=== PATIENT | male | born 1950 ===

== ENCOUNTER 2016-02-25 13:37 | Inpatient (IN) | payer SELFPAY ==
[2016-02-25] VITALS (8 sets, daily range): BP systolic 157–192; BP diastolic 84–121; PULSE 52–83; TEMP 36.7–36.8; O2SAT 95–98; Ht 170.2 cm; Wt 69.0 kg
[~2016-02-25] VITALS: Ht 170.2 cm; Wt 69.0 kg
[2016-02-25] MEDS ORDERED: SODIUM CHLORIDE 0.9% 1000ML 1,000 ML IV SCH ×2 (14:03→20:15)
--- NOTE | 2016-02-25 14:03 | EMERGENCY ROOM VISIT NOTE ---
History Report prepared by Gregibe: Jenifer Adams Under the Supervision of: Dr. Sheila Zepeda M.D. First contact with patient: 13:46 Chief Complaint: STROKE SYMPTOMS Stated Complaint: TROUBLE SPEAKING/WALKING/STANDING History of Present Illness The patient is a 65 year old male who presents to the Emergency Room with complaints of stroke-like symptoms that began about 45 minutes ago. Per patient' s family, who is translating as the patient does not speak any [place]o, the patient developed right sided numbness initially 45 minutes ago. He tried to stand up but fell a few times. His family also noticed that he was having a hard time speaking. His symptoms seemed to resolve after 30 minutes. Upon arrival to the emergency room, he had another episode of numbness that lasted about 10 minutes. Currently he feels better but not completely normal on his right side. His family states that his speech does seem clear. He does not have a known history of stroke, cancer, or heart disease, although he does not follow up with a primary care physician. The patient is a smoker of about 4-5 cigarettes a day for over 20 years. 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 A total of 10 systems reviewed and were otherwise negative. Past Medical & Surgical Medical Problems: (1) Stroke (2) Tobacco abuse Surgical Problems: (1) No pertinent past surgical history Family History No pertinent family history stated. Social History Smoking Status: Current Every Day Smoker Marital Status: Occupation Status: retired Current/Historical Medications No Active Prescriptions or Reported Meds Allergies Coded Allergies: No Known Allergies (Unverified , 02/25/16) Physical Exam Vital Signs Date Time Temp Pulse Resp B/P Pulse Ox O2 Delivery O2 Flow Rate FiO2 02/25/16 16:30 59 16 180/90 97 Room Air 02/25/16 16:15 55 20 176/87 97 Room Air 02/25/16 16:00 60 19 165/95 98 Room Air 02/25/16 15:45 57 17 163/84 97 Room Air 02/25/16 15:30 56 18 155/87 96 Room Air 02/25/16 15:15 57 17 179/68 96 Room Air 02/25/16 14:31 94 Room Air 02/25/16 13:59 64 02/25/16 13:41 36.9 76 18 188/87 97 Room Air Physical Exam Vital signs reviewed. General: Well-appearing 65 year old male, in no significant distress. HEENT: No scleral icterus, PERRLA, neck supple. Atraumatic. Cardiovascular: Regular rate and rhythm, no extra sounds. Pulmonary: Clear to auscultation bilaterally, normal work of breathing. Abdomen: Soft, nontender, nondistended, positive bowel sounds. Musculoskeletal: Atraumatic, no peripheral edema. Neurologic: Patient awake alert and oriented x 3, full strength in all 4 extremities. Cranial nerves 2 through 12 grossly intact. Limited due to language Skin: Warm, dry, no rash Medical Decision & Procedures ER Provider Diagnostic Interpretation: X-ray results as stated below per my interpretation and radiologist interpretation. Other radiology results as stated below per my review and radiologist interpretation: CT SCAN OF THE BRAIN WITHOUT IV CONTRAST; CT ANGIOGRAM OF THE BRAIN; CT ANGIOGRAM OF THE NECK CLINICAL HISTORY: Strokelike symptoms. Difficult walking. COMPARISON STUDY: No priors. TECHNIQUE: Unenhanced axial CT scan of the brain is performed. Subsequently, following the IV administration of 120 of Optiray 320, CT angiogram of the head and neck was performed from the aortic arch to the vertex. Images are reviewed in the axial, sagittal, and coronal planes. 3-D MIPS images are created and assessed. IV contrast was administered without complication. All measurements were calculated based on NASCET criteria. CT DOSE: 1345.08 mGy.cm FINDINGS: Brain parenchyma: The brain parenchyma is normal in appearance. There is no hemorrhage, mass effect, or evidence of acute territorial ischemia by CT criteria. There is no evidence of enhancing mass lesion on the angiogram phase images. The ventricles, sulci, and cisterns are normal in configuration. [place]-white matter differentiation is preserved. No extra-axial fluid collection is identified. Thoracic aorta: There is atherosclerotic calcification of the imaged thoracic aorta. Visualized portions of the thoracic aorta are normal in caliber. The aortic arch demonstrates standard 3-vessel anatomy. Right carotid arterial system: The right common carotid artery is widely patent, as are the right internal and external carotid arteries. Mild atherosclerotic plaque is seen in the right carotid bulb. Left carotid arterial system: The left common carotid artery is widely patent, as are the left internal and terminal carotid arteries. There is approximately 25% narrowing in the left proximal internal carotid artery secondary to soft plaque. Vertebral arteries: The vertebral arteries are widely patent. The left vertebral artery is dominant. No dissection is seen. Subclavian arteries: Widely patent bilaterally. Intracranial vasculature: A small left posterior indicating artery is identified. There is approximately 50% focal stenosis in the left carotid siphon, best seen on axial image #[address] angiogram of the brain. The carotid arteries are otherwise widely patent at the skull base. The anterior and middle cerebral arteries are widely patent. The vertebrobasilar system and posterior cerebral arteries are widely patent. The left vertebral artery is dominant. No aneurysm is seen. No focal vessel cutoff is appreciated. Jugular veins: Widely patent bilaterally. Dural sinuses: Clear. Lung apices: Emphysema is seen at the lung apices. Secretions are present within the right mainstem bronchus. No airspace consolidation is seen in the upper lobes. Soft tissues: The visualized pharyngeal soft tissues are normal in appearance noting angiographic phase technique. The oropharyngeal airway appears widely patent. The salivary and thyroid glands are normal in appearance. No cervical lymphadenopathy is seen. Calcified tonsilliths are incidentally noted. Skeletal structures: No destructive calvarial lesion is seen. The cervical spine appears intact noting mild spondylosis. Numerous dental caries are identified. A periapical lucency is seen around the right mandibular central incisor. Sinuses and mastoids: There is mild mucosal thickening within the maxillary antra and the ethmoid sinuses. The remaining paranasal sinuses are clear. The mastoid air cells are well pneumatized. IMPRESSION: 1. There is no hemorrhage, mass effect, or evidence of acute territorial ischemia by CT criteria. 2. 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 The CT angiogram of the brain is otherwise unremarkable. No aneurysm is seen. 3. Unremarkable CT angiogram of the neck. 4. Emphysema. 5. Numerous dental caries are identified. Follow-up with dentistry is recommended. 6. Additional findings as above. Electronically signed by: Brock Putnam M.D. 02/25/2016 2:41 PM Dictated Date/Time: 02/25/2016 2:21 PM CHEST ONE VIEW PORTABLE HISTORY: Stroke symptoms. COMPARISON: None. FINDINGS: The lungs are clear. No pleural effusions. No pneumothorax. The heart is top normal in size. No evidence for pulmonary edema. IMPRESSION: No acute process. Electronically signed by: Cameron Wood M.D. 02/25/2016 2:40 PM Dictated Date/Time: 02/25/2016 2:38 PM Laboratory Results 02/25/16 13:50 Red Blood Count 4.96, Mean Corpuscular Volume 90.7, Mean Corpuscular Hemoglobin 30.8, Mean Corpuscular Hemoglobin Concent 34.0, Mean Platelet Volume 10.3, Neutrophils (%) (Auto) 44.0, Lymphocytes (%) (Auto) 43.5, Monocytes (%) (Auto) 7.1, Eosinophils (%) (Auto) 4.9, Basophils (%) (Auto) 0.4, Neutrophils # (Auto) 4.11, Lymphocytes # (Auto) 4.07, Monocytes # (Auto) 0.66, Eosinophils # (Auto) 0.46, Basophils # (Auto) 0.04 02/25/16 13:50 Test 02/25/16 13:50 White Blood Count 9.35 K/uL (4.8-10.8) Red Blood Count 4.96 M/uL (4.7-6.1) Hemoglobin 15.3 g/dL (14.0-18.0) Hematocrit 45.0 % (42-52) Mean Corpuscular Volume 90.7 fL (80-100) Mean Corpuscular Hemoglobin 30.8 pg (25-34) Mean Corpuscular Hemoglobin Concent 34.0 g/dl (32-36) Platelet Count 198 K/uL (130-400) Mean Platelet Volume 10.3 fL (7.4-10.4) Neutrophils (%) (Auto) 44.0 % Lymphocytes (%) (Auto) 43.5 % Monocytes (%) (Auto) 7.1 % Eosinophils (%) (Auto) 4.9 % Basophils (%) (Auto) 0.4 % Neutrophils # (Auto) 4.11 K/uL (1.4-6.5) Lymphocytes # (Auto) 4.07 K/uL (1.2-3.4) Monocytes # (Auto) 0.66 K/uL (0.11-0.59) Eosinophils # (Auto) 0.46 K/uL (0-0.5) Basophils # (Auto) 0.04 K/uL (0-0.2) RDW Standard Deviation 45.3 fL (36.4-46.3) RDW Coefficient of Variation 13.8 % (11.5-14.5) Immature Granulocyte % (Auto) 0.1 % Immature Granulocyte # (Auto) 0.01 K/uL (0.00-0.02) Prothrombin Time 10.5 SECONDS (9.0-12.0) Prothromb Time International Ratio 1.0 (0.9-1.1) Activated Partial Thromboplast Time 27.8 SECONDS (21.0-31.0) Partial Thromboplastin Ratio 1.1 Anion Gap 10.0 mmol/L (3-11) Est Creatinine Clear Calc Drug Dose 62.6 ml/min Estimated GFR () 81.2 Estimated GFR (Non- 70.1 BUN/Creatinine Ratio 17.0 (10-20) Calcium Level 9.2 mg/dl (8.5-10.1) Total Bilirubin 0.4 mg/dl (0.2-1) Direct Bilirubin < 0.1 mg/dl (0-0.2) Aspartate Amino Transf (AST/SGOT) 17 U/L (15-37) Alanine Aminotransferase (ALT/SGPT) 19 U/L (12-78) Alkaline Phosphatase 65 U/L (45-117) Total Creatine Kinase 101 U/L (39-308) Creatine Kinase MB 1.4 ng/ml (0.5-3.6) Creatine Kinase MB Ratio 1.4 (0-3.0) Troponin I < 0.015 ng/ml (0-0.045) Total Protein 7.7 gm/dl (6.4-8.2) Albumin 3.7 gm/dl (3.4-5.0) Laboratory results per my review. Medications Administered Medications (Trade) Dose Ordered Sig/Oliverio Route Start Time Stop Time Status Last Admin Dose Admin Sodium Chloride (Nss 1000ml) 1,000 ml @ 50 mls/hr Q20H IV 02/25/16 14:03 02/25/16 17:48 DC 02/25/16 14:45 50 MLS/HR ECG Indication: other (numbness) Rate (beats per minute): 72 Rhythm: normal sinus Findings: no ectopy, other (T wave abnormality anterolaterally) ED Course 1346: The patient was evaluated in room A12. A complete history and physical examination was performed. 1403: I reassessed the patient. At this time he had slurred speech, a right sided facial droop, tongue deviation to the right, and 4/5 right upper extremity weakness. Ordered NSS 1000 ml @ 50 mls/hr IV. 1424: I discussed the case with Dr. Fabiana Victoria Neurology. 1451: I reassessed the patient and discussed treatment options with the patient' s family. 1459: Ordered Alteplase Recombinant 6.2/Syringe 6.2 ml @ 6.2 mls/min IV, Alteplase Recombinant 55.8 mg/Empty Bag 55.8 ml @ 55.8 mls/hr IV. 1500: TPA will be administered. 1600: I reassessed the patient. He still had some right facial droop but his tongue deviation resolved and he seemed a little bit clearer. I discussed the treatment plan with the patient's family. 1605: I discussed the case with BEULAH Dupree [facility]. The patient will be evaluated for further management. Medical Decision Differential diagnosis: Etiologies such as metabolic, infection, hypo/hyperglycemia, electrolyte abnormalities, cardiac sources, intracerebral event, toxicologic, neurologic, as well as others were entertained. This patient was evaluated and appeared to be in no distress on my initial exam. The patient had no focal neurologic deficit initially. 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 Approximately 78 minutes after my initial evaluation, the patient had recurrent symptoms with noticeable right-sided facial droop, tongue deviation to the right, right upper and lower extremity weakness. He does not speak [place]o but according to family members his speech was slurred. The patient remained cognizant and able to state the year during this episode. A stroke alert was called, the patient was taken CT scan for CT/CTA which is read as above. Dr. Fitzgerald of stroke neurology did evaluate the patient. TPA was recommended and the patient had no significant contraindication. The risks and benefits were discussed with the patient and his family. They were able to translate for the patient at the bedside. TPA was administered. The case was discussed with the hospitalist service as well as the single resource boss, Dr. Weiner. Patient will be admitted for further management. Consults Time Called: 1420 Consulting Physician: Dr. Fabiana Victoria Neurology Returned Call: [phone] I discussed the case with her. Additional Consults: Time Called: 1600 Consulted Physician: [facility] Returned Call: [phone] Additional Comments: I discussed the case with her. The patient will be evaluated for further management. Impression Primary Impression: Stroke Critical Care I have personally spent greater than 45 minutes of critical care time in the direct management of this patient. This includes bedside care, interpretation of diagnostic studies, and testing, discussion with consultants, patient, and family members, and other required patient management activities. This 45 minutes is in excess of all separately billable procedures. Scribe Attestation The scribe's documentation has been prepared under my direction and personally reviewed by me in its entirety. I confirm that the note above accurately reflects all work, treatment, procedures, and medical decision making performed by me. Departure Information Dispostion Being Evaluated By Hospitalist Prescriptions No Active Prescriptions or Reported Meds Referrals No Doctor, Assigned (PCP) Patient Instructions My [facility]
[2016-02-25 14:10] LABS: BASO % 0.4 %; BASO ABS # 0.04 K/uL (0-0.2); COMPLETE YES; EOS % 4.9 %; IG% 0.1 %; LYMPH % 43.5 %; LYMPH ABS # 4.07 K/uL (1.2-3.4); MEAN CELL VOLUME 90.7 fL (80-100); MEAN CORPUSCULAR HEMOGLOBIN 30.8 pg (25-34); MEAN PLATELET VOLUME 10.3 fL (7.4-10.4); MONO % 7.1 %; PLATELET COUNT 198 K/uL (130-400); RED BLOOD COUNT 4.96 M/uL (4.7-6.1); WHITE BLOOD COUNT 9.35 K/uL (4.8-10.8)
[2016-02-25] MEDS ORDERED: OPTIRAY 320 IV PRN (14:15)
[2016-02-25 14:19] LABS: PARTIAL THROMBOPLASTIN RATIO 1.1; PROTHROMBIN TIME (PATIENT) 10.5 SECONDS (9.0-12.0)
[2016-02-25 14:21] LABS: BLOOD UREA NITROGEN 19 mg/dl (7-18); CALCIUM 9.2 mg/dl (8.5-10.1); CARBON DIOXIDE 23 mmol/L (21-32); CHLORIDE 109 mmol/L (98-107); GLUCOSE 157 mg/dl (70-99); SODIUM 142 mmol/L (136-145)
[2016-02-25 14:26] LABS: CKMB/CK RATIO 1.4 (0-3.0)
--- NOTE | 2016-02-25 14:41 | DIAGNOSTIC IMAGING REPORT ---
CHEST ONE VIEW PORTABLE HISTORY: Stroke symptoms. COMPARISON: None. FINDINGS: The lungs are clear. No pleural effusions. No pneumothorax. The heart is top normal in size. No evidence for pulmonary edema. IMPRESSION: No acute process. Electronically signed by: Cameron Wood M.D. 02/25/2016 2:40 PM Dictated Date/Time: 02/25/2016 2:38 PM
--- NOTE | 2016-02-25 14:43 | DIAGNOSTIC IMAGING REPORT ---
CT SCAN OF THE BRAIN WITHOUT IV CONTRAST; CT ANGIOGRAM OF THE BRAIN; CT ANGIOGRAM OF THE NECK CLINICAL HISTORY: Strokelike symptoms. Difficult walking. COMPARISON STUDY: No priors. TECHNIQUE: Unenhanced axial CT scan of the brain is performed. Subsequently, following the IV administration of 120 of Optiray 320, CT angiogram of the head and neck was performed from the aortic arch to the vertex. Images are reviewed in the axial, sagittal, and coronal planes. 3-D MIPS images are created and assessed. IV contrast was administered without complication. All measurements were calculated based on NASCET criteria. CT DOSE: 1345.08 mGy.cm FINDINGS: Brain parenchyma: The brain parenchyma is normal in appearance. There is no hemorrhage, mass effect, or evidence of acute territorial ischemia by CT criteria. There is no evidence of enhancing mass lesion on the angiogram phase images. The ventricles, sulci, and cisterns are normal in configuration. [place]-white matter differentiation is preserved. No extra-axial fluid collection is identified. Thoracic aorta: There is atherosclerotic calcification of the imaged thoracic aorta. Visualized portions of the thoracic aorta are normal in caliber. The aortic arch demonstrates standard 3-vessel anatomy. Right carotid arterial system: The right common carotid artery is widely patent, as are the right internal and external carotid arteries. Mild atherosclerotic plaque is seen in the right carotid bulb. Left carotid arterial system: The left common carotid artery is widely patent, as are the left internal and terminal carotid arteries. There is approximately 25% narrowing in the left proximal internal carotid artery secondary to soft plaque. Vertebral arteries: The vertebral arteries are widely patent. The left vertebral artery is dominant. No dissection is seen. Subclavian arteries: Widely patent bilaterally. Intracranial vasculature: A small left posterior indicating artery is identified. There is approximately 50% focal stenosis in the left carotid siphon, best seen on axial image #[address] angiogram of the brain. The carotid arteries are otherwise widely patent at the skull base. The anterior and middle cerebral arteries are widely patent. The vertebrobasilar system and posterior cerebral arteries are widely patent. The left vertebral artery is dominant. No aneurysm is seen. No focal vessel cutoff is appreciated. Jugular veins: Widely patent bilaterally. Dural sinuses: Clear. Lung apices: Emphysema is seen at the lung apices. Secretions are present within the right mainstem bronchus. No airspace consolidation is seen in the upper lobes. Soft tissues: The visualized pharyngeal soft tissues are normal in appearance noting angiographic phase technique. The oropharyngeal airway appears widely patent. The salivary and thyroid glands are normal in appearance. No cervical lymphadenopathy is seen. Calcified tonsilliths are incidentally noted. Skeletal structures: No destructive calvarial lesion is seen. The cervical spine appears intact noting mild spondylosis. Numerous dental caries are identified. A periapical lucency is seen around the right mandibular central incisor. Sinuses and mastoids: There is mild mucosal thickening within the maxillary antra and the ethmoid sinuses. The remaining paranasal sinuses are clear. The mastoid air cells are well pneumatized. IMPRESSION: 1. There is no hemorrhage, mass effect, or evidence of acute territorial ischemia by CT criteria. 2. 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 The CT angiogram of the brain is otherwise unremarkable. No aneurysm is seen. 3. Unremarkable CT angiogram of the neck. 4. Emphysema. 5. Numerous dental caries are identified. Follow-up with dentistry is recommended. 6. Additional findings as above. Electronically signed by: Brock Putnam M.D. 02/25/2016 2:41 PM Dictated Date/Time: 02/25/2016 2:21 PM
[2016-02-25] MEDS ORDERED: SET 2260-0500 IV ONE (15:00)
[2016-02-25] MEDS ORDERED: PHARMACIST DISCHARGE MED REC CONSULT PRN (16:45)
[2016-02-25 16:59] LABS: URINE APPEARANCE CLEAR (CLEAR); URINE BILIRUBIN NEG (NEG); URINE COLOR YELLOW; URINE EPITHELIAL CELL AUTO 0-5 /lpf (0-5); URINE NITRITE NEG (NEG); URINE SPECIFIC GRAVITY 1.036 (1.000-1.030); UROBILINOGEN NEG (NEG); ZZUR CULT IF INDIC CLEAN CATCH NO
[2016-02-25 17:00] LABS: MANUAL MICROSCOPIC REQUIRED? NO; REVIEW REQ? NO
[2016-02-25] MEDS ORDERED: ACETAMINOPHEN 325 MG TAB PO PRN (17:00)
[2016-02-25] MEDS ORDERED: ONDANSETRON INJ 2 MG/ML 2 ML VIAL IV PRN (17:00)
--- NOTE | 2016-02-25 17:11 | History and Physical ---
History & Physical Date & Time of Service: Feb 25, 2016 at 16:48 Chief Complaint: Trouble Speaking/Walking/Standing Primary Care Physician: No Doctor, Assigned History of Present Illness Source: patient, family, hospital records Patient seen and examined. 65 year old male with PMHx of tobacco abuse ho does not follow with a doctor on a regular basis and speaks minimal Cymraes presents to the ED complaining of right sided weakness prior to arrival. History taken primarily by family as they declined language line. Family reports that the patient had several falls this morning. They went over to see him and around 12: 30 they noticed right sided upper and lower extremity weakness, slurred speech and right sided facial droop. These symptoms lasted for about 30minutes and then resolved totally. They brought the patient to the ED via private vehicle and on the way these symptoms returned and lasted for a few minutes and then went away. On arrival at the ED the patient had no focal deficits. Shortly after arrival, patient developed right sided facial droop, numbness/tingling and weakness of the right upper and lower extremity and slurred speech. A stroke alert was called. CT head was negative for acute ischemic changes but [facility] neurology recommended TPA. TPA was given and finished at 1603. Patient currently feels back at baseline. Family denies that these symptoms have ever happened before. The patient denies fevers, chills, head trauma, URI symptoms, chest pain, SOB, palpitation, nausea, vomiting, diarrhea, dysuria, calf pain and edema. He reports a family history of a stroke in his father. He denies aspirin use. In the ED BP was elevated in the 170s, otherwise VS were stable, CBC, PRP were unremarkable. Patient will be admitted to the ICU for close observation following TPA administration. Past Medical/Surgical History Medical Problems: (1) Tobacco abuse Status: Chronic Surgical Problems: (1) No pertinent past surgical history Status: Chronic Family History Stroke FATHER Social History Smoking Status: Current Every Day Smoker Alcohol Use: none Drug Use: none Marital Status: Occupational Status: retired Allergies Coded Allergies: No Known Allergies (Unverified , 02/25/16) Home Medications No Active Prescriptions or Reported Meds Review of Systems See above for pertinent positives & negatives. A total of 10 systems reviewed and were otherwise negative. Physical Exam Vital Signs Date Time Temp Pulse Resp B/P Pulse Ox O2 Delivery O2 Flow Rate FiO2 02/25/16 16:45 54 18 178/83 96 Room Air 02/25/16 16:30 59 16 180/90 97 Room Air 02/25/16 16:15 55 20 176/87 97 Room Air 02/25/16 16:00 60 19 165/95 98 Room Air 02/25/16 15:45 57 17 163/84 97 Room Air 02/25/16 15:30 56 18 155/87 96 Room Air 02/25/16 15:15 57 17 179/68 96 Room Air 02/25/16 14:31 94 Room Air 02/25/16 13:59 64 02/25/16 13:41 36.9 76 18 188/87 97 Room Air General Appearance: + pertinent finding (Pleasant WD/WN 65 year old male lying in bed in NAD with family at bedside ) Head: normocephalic, atraumatic Eyes: PERRL, sclerae normal ENT: hearing grossly normal, + pertinent finding (poor dentition ) Neck: supple, no JVD, trachea midline Respiratory/Chest: chest non-tender, normal breath sounds, no respiratory distress, no accessory muscle use, + crackles (trace, scattered ) Cardiovascular: regular rate, rhythm, no edema, no gallop, no JVD, no murmur, normal peripheral pulses Abdomen/GI: normal bowel sounds, non tender, soft Back: normal inspection, no muscle spasm Extremities/Musculoskelatal: no calf tenderness, normal capillary refill, no pedal edema Neurologic/Psych: alert, oriented x 3, + pertinent finding (tinter photograph intact, no facial droop, tongue midline, strength +5/5 in all extremities equal bilaterally , sensation intact) Skin: normal color, warm/dry, no rash Lymphatic: no adenopathy Diagnostics Laboratory Results Results Past 24 Hours Test 02/25/16 13:50 02/25/16 14:04 02/25/16 16:33 Range/Units White Blood Count 9.35 4.8-10.8 K/uL Red Blood Count 4.96 4.7-6.1 M/uL Hemoglobin 15.3 14.0-18.0 g/dL Hematocrit 45.0 42-52 % Mean Corpuscular Volume 90.7 80-100 fL Mean Corpuscular Hemoglobin 30.8 25-34 pg Mean Corpuscular Hemoglobin Concent 34.0 32-36 g/dl Platelet Count 198 130-400 K/uL Mean Platelet Volume 10.3 7.4-10.4 fL Neutrophils (%) (Auto) 44.0 % Lymphocytes (%) (Auto) 43.5 % Monocytes (%) (Auto) 7.1 % Eosinophils (%) (Auto) 4.9 % Basophils (%) (Auto) 0.4 % Neutrophils # (Auto) 4.11 1.4-6.5 K/uL Lymphocytes # (Auto) 4.07 1.2-3.4 K/uL Monocytes # (Auto) 0.66 0.11-0.59 K/uL Eosinophils # (Auto) 0.46 0-0.5 K/uL Basophils # (Auto) 0.04 0-0.2 K/uL RDW Standard Deviation 45.3 36.4-46.3 fL RDW Coefficient of Variation 13.8 11.5-14.5 % Immature Granulocyte % (Auto) 0.1 % Immature Granulocyte # (Auto) 0.01 0.00-0.02 K/uL Prothrombin Time 10.5 9.0-12.0 SECONDS Prothromb Time International Ratio 1.0 0.9-1.1 Activated Partial Thromboplast Time 27.8 21.0-31.0 SECONDS Partial Thromboplastin Ratio 1.1 Sodium Level 142 136-145 mmol/L Potassium Level 4.0 3.5-5.1 mmol/L Chloride Level 109 98-107 mmol/L Carbon Dioxide Level 23 21-32 mmol/L Anion Gap 10.0 3-11 mmol/L Blood Urea Nitrogen 19 7-18 mg/dl Creatinine 1.10 0.60-1.40 mg/dl Est Creatinine Clear Calc Drug Dose 62.6 ml/min Estimated GFR () 81.2 Estimated GFR (Non- 70.1 BUN/Creatinine Ratio 17.0 10-20 Random Glucose 157 70-99 mg/dl Calcium Level 9.2 8.5-10.1 mg/dl Total Creatine Kinase 101 39-308 U/L Creatine Kinase MB 1.4 0.5-3.6 ng/ml Creatine Kinase MB Ratio 1.4 0-3.0 Troponin I < 0.015 0-0.045 ng/ml Diagnostic Radiology CXR Per radiologist read: IMPRESSION: No acute process. CT HEAD/ CTA HEAD Per radiologist read: IMPRESSION: 1. There is no hemorrhage, mass effect, or evidence of acute territorial ischemia by CT criteria. 2. 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 The CT angiogram of the brain is otherwise unremarkable. No aneurysm is seen. 3. Unremarkable CT angiogram of the neck. 4. Emphysema. 5. Numerous dental caries are identified. Follow-up with dentistry is recommended. 6. Additional findings as above. EKG NSR 72 BPM, QTc 409 Impression Assessment and Plan 65 year old male presents to the ED with stroke like symptoms prior to arrival. Stroke alert called and patient received TPA, neurologically back at baseline ACUTE CVA S/P TPA -admit to ICU -CT head negative for acute ischemia, CTA head/neck shows 50% stenosis within the left carotid siphon -Stroke alert called, TPA given and finished at 1603 -Repeat CT head 24 hours after TPA -MRI/MRA head -Check A1c, fasting lipid profile -Echo pending to r/o embolic source -monitoring analyst to r/o arrhythmia -monitor in ICU for bleeding -no anticoagulation -Lipitor started for clot stabilization -Neurology consult pending for further input -Child Protective Investigator consult for further input - spoke with Dr. Springer -Neuro checks per TPA protocol -Speech, PT, OT evals -dysphagia screening -allow permissive HTN in setting of CVA -monitor VS closely -CBC, PRP, Mg daily HTN -running in the 170s systolically -allow for permissive HTN in setting of CVA TOBACCO ABUSE - cessation counseling given -nicotine patch ordered DVT PROPHYLAXIS: no anticoagulation - patient received TPA DISPO:In my clinical judgment this beneficiary meets acute admission criteria, established by [facility], that includes being hospitalized through two midnights. Discharge planning eval Patient seen in collaboration with Dr. Westfall Attending Note: Patient is a 65 yr old male with no significant PMH other than Tobacco use disorder presents with history of sudden onset of right sided weakness, facial droop and slurred speech this morning. Family reports he fell at least twice as a result of his weakness but denies any head trauma, LOC, bowel/bladder incontinence, vertigo, change in vision, dizziness or similar symptoms in the past. Symptoms were self limited which lasted for about 30 minutes. While in ED patient had recurrence of his symptoms and CT head showed no acute pathology and TPA was administered while in ED Currently he denies any symptoms and his weakness, speech and facial droop resolved. Physical Exam: Vitals signs as noted above General Appearance:Moderately built and nourished, no apparent distress Head: normocephalic, Atraumatic Eyes: normal inspection, EOMI, PERRLA, Anicteric Neck: supple, no JVD, Trachea midline, No JVD Respiratory/Chest: Decreased breath sounds, CTA, No accessory muscle use Cardiovascular: S1, S2, NSR, No murmur Abdomen/GI:Soft, Non tender, Bowel sounds present, No guarding/rigidity/ organomegaly Extremities/Musculoskelatal:normal inspection, no calf tenderness, cyanosis, clubbing, edema Neurologic/Psych:AAOX3, grossly no focal neurological deficits Skin: normal color, warm Assessment and Plan: Acute CVA S/P tPA Admit in ICU for monitoring S/P tPA CT head: showed no acute pathology Stroke work up including lipid panel, A1C, MRI Brain, Carotid duplex, ECHO Repeat CT head post tPA No aspirin for now, start Lipitor Neuro checks, Neurology consult Child Protective Investigator consulted for management while in ICU Speech and swallow eval PT/OT Close monitoring in ICU S/P tPA Agree with assessment and plan of Kandis Joel PA-C as above VTE Prophylaxis VTE Risk Assessment Done? Y/N: Yes Risk Level: Moderate
--- NOTE | 2016-02-25 18:35 | Critical Care Consultation ---
Critical Care Consultation Date of Consultation: Feb 25, 2016. Attending Physician: Angy Barton DO Reason for Consultation: stroke tpa admin History of Present Illness History was taken from family members because patient does not speak icelandic This is a 65 yo m that is presenting to us after receiving tpa for stroke like symptoms. The patient called her niece at approximately 1230 this afternoon because he has right sided weakness and difficulty speaking. He also had fallen twice. The niece arrived to the house by 1300 and the symptoms resolved. Soon after the symptoms started again and the right sided weakness was visible as well as right sided facial drooping so they decided to come to ED via private vehicle. On arrival he continued to have these symptoms so a stroke alert was called and patient was administered tpa at [address] Jung, neurology. The facial drooping/ tongue deviation resolved after administration and right sided weakness improved but not to BL. According to the niece the speech is appropriate and not slurred. He did not have any other symptoms such as a fever, chest pain, incontinence or myalgias. He has no past medical history or surgical history as he has never seen a doctor or been in a hospital before. He smokes approx 5-6 cig / day for the majority of his life. Past Medical/Surgical History Nil Family History Stroke FATHER Social History Smoking Status: Current Every Day Smoker Smokeless Tobacco Use: No Alcohol Use: none Drug Use: none Marital Status: Housing Status: lives with family Occupation Status: retired Allergies Coded Allergies: No Known Allergies (Unverified , 02/25/16) Home Medications Scheduled Atorvastatin (Atorvastatin Calcium), 40 MG PO QPM Nicotine (Nicotine), 1 PATCH TD QAM Current Inpatient Medications Current Inpatient Medications Medications (Trade) Dose Ordered Sig/Oliverio Route Start Time Stop Time Status Last Admin Dose Admin Ioversol (Optiray 320) 100 ml UD PRN IV 02/25/16 14:15 02/29/16 14:14 Miscellaneous Information (Pharmacist Discharge Med Rec Consult) 1 ea UD PRN N/A 02/25/16 16:45 03/26/16 16:44 Atorvastatin Calcium (Lipitor Tab) 40 mg QPM PO 02/25/16 21:00 03/26/16 20:59 Nicotine (Nicoderm Cq 14MG Patch) 1 patch QAM TD 02/26/16 09:00 03/27/16 08:59 Miscellaneous (Remove Nicoderm Patch) 1 ea HS N/A 02/26/16 21:00 03/27/16 20:59 Acetaminophen (Tylenol Tab) 650 mg Q4H PRN PO 02/25/16 17:00 03/26/16 16:59 Ondansetron HCl (Zofran Inj) 4 mg Q6H PRN IV 02/25/16 17:00 03/26/16 16:59 Review of Systems Limited because of language barrier Physical Exam Date Time Temp Pulse Resp B/P Pulse Ox O2 Delivery O2 Flow Rate FiO2 02/25/16 18:31 36.8 68 18 166/101 98 Room Air 02/25/16 18:31 36.8 68 18 166/101 98 Room Air 02/25/16 18:00 36.8 52 16 157/87 98 Room Air 02/25/16 18:00 36.8 52 16 157/87 98 Room Air 02/25/16 17:30 36.8 52 16 157/87 Room Air 02/25/16 17:30 36.7 56 20 165/87 98 Room Air 02/25/16 17:30 36.8 56 14 165/87 98 Room Air 02/25/16 17:00 59 20 161/85 98 Room Air 02/25/16 16:45 54 18 178/83 96 Room Air 02/25/16 16:30 59 16 180/90 97 Room Air 02/25/16 16:15 55 20 176/87 97 Room Air 02/25/16 16:00 60 19 165/95 98 Room Air 02/25/16 15:45 57 17 163/84 97 Room Air 02/25/16 15:30 56 18 155/87 96 Room Air 02/25/16 15:15 57 17 179/68 96 Room Air 02/25/16 14:31 94 Room Air 02/25/16 13:59 64 02/25/16 13:41 36.9 76 18 188/87 97 Room Air General Appearance: WD/WN, no apparent distress Head: normocephalic, atraumatic Eyes: normal inspection, PERRL, EOMI, sclerae normal ENT: + pertinent finding (extremely poor dentition ) Neck: supple, no adenopathy, no carotid bruits, trachea midline Respiratory/Chest: lungs clear, normal breath sounds, no respiratory distress, no accessory muscle use, + decreased breath sounds (bilat bases), + wheezing ( occasional expiratory wheeze) Cardiovascular: regular rate, rhythm, no murmur Abdomen/GI: non tender, soft Back: normal inspection Extremities/Musculoskelatal: normal inspection, no calf tenderness, no pedal edema 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, no motor/sensory deficits (however motor is 5/5 bilat but slightly diminished to right compared to left), alert, normal reflexes, oriented x 3 Skin: normal color, warm/dry, no rash Lymphatic: no adenopathy Laboratory Results Last 24 Hours Test 02/25/16 13:50 02/25/16 16:38 02/25/16 17:11 White Blood Count 9.35 K/uL Red Blood Count 4.96 M/uL Hemoglobin 15.3 g/dL Hematocrit 45.0 % Mean Corpuscular Volume 90.7 fL Mean Corpuscular Hemoglobin 30.8 pg Mean Corpuscular Hemoglobin Concent 34.0 g/dl Platelet Count 198 K/uL Mean Platelet Volume 10.3 fL Neutrophils (%) (Auto) 44.0 % Lymphocytes (%) (Auto) 43.5 % Monocytes (%) (Auto) 7.1 % Eosinophils (%) (Auto) 4.9 % Basophils (%) (Auto) 0.4 % Neutrophils # (Auto) 4.11 K/uL Lymphocytes # (Auto) 4.07 K/uL Monocytes # (Auto) 0.66 K/uL Eosinophils # (Auto) 0.46 K/uL Basophils # (Auto) 0.04 K/uL RDW Standard Deviation 45.3 fL RDW Coefficient of Variation 13.8 % Immature Granulocyte % (Auto) 0.1 % Immature Granulocyte # (Auto) 0.01 K/uL Prothrombin Time 10.5 SECONDS Prothromb Time International Ratio 1.0 Activated Partial Thromboplast Time 27.8 SECONDS Partial Thromboplastin Ratio 1.1 Sodium Level 142 mmol/L Potassium Level 4.0 mmol/L Chloride Level 109 mmol/L Carbon Dioxide Level 23 mmol/L Anion Gap 10.0 mmol/L Blood Urea Nitrogen 19 mg/dl Creatinine 1.10 mg/dl Est Creatinine Clear Calc Drug Dose 62.6 ml/min Estimated GFR () 81.2 Estimated GFR (Non- 70.1 BUN/Creatinine Ratio 17.0 Random Glucose 157 mg/dl Calcium Level 9.2 mg/dl Total Creatine Kinase 101 U/L Creatine Kinase MB 1.4 ng/ml Creatine Kinase MB Ratio 1.4 Troponin I < 0.015 ng/ml Urine Color YELLOW Urine Appearance CLEAR Urine pH 5.0 Urine Specific [place] 1.036 Urine Protein NEG Urine Glucose (UA) NEG Urine Ketones NEG Urine Occult Blood 1+ Urine Nitrite NEG Urine Bilirubin NEG Urine Urobilinogen NEG Urine Leukocyte Esterase NEG Urine WBC (Auto) 0 /hpf Urine RBC (Auto) 0-4 /hpf Urine Hyaline Casts (Auto) 0 /lpf Urine Epithelial Cells (Auto) 0-5 /lpf Urine Bacteria (Auto) NEG Diagnostic Results CHEST ONE VIEW PORTABLE HISTORY: Stroke symptoms. COMPARISON: None. FINDINGS: The lungs are clear. No pleural effusions. No pneumothorax. The heart is top normal in size. No evidence for pulmonary edema. IMPRESSION: No acute process. [~ rep ct add3]] CT SCAN OF THE BRAIN WITHOUT IV CONTRAST; CT ANGIOGRAM OF THE BRAIN; CT ANGIOGRAM OF THE NECK CLINICAL HISTORY: Strokelike symptoms. Difficult walking. COMPARISON STUDY: No priors. TECHNIQUE: Unenhanced axial CT scan of the brain is performed. Subsequently, following the IV administration of 120 of Optiray 320, CT angiogram of the head and neck was performed from the aortic arch to the vertex. Images are reviewed in the axial, sagittal, and coronal planes. 3-D MIPS images are created and assessed. IV contrast was administered without complication. All measurements were calculated based on NASCET criteria. CT DOSE: 1345.08 mGy.cm FINDINGS: Brain parenchyma: The brain parenchyma is normal in appearance. There is no hemorrhage, mass effect, or evidence of acute territorial ischemia by CT criteria. There is no evidence of enhancing mass lesion on the angiogram phase images. The ventricles, sulci, and cisterns are normal in configuration. [place]-white matter differentiation is preserved. No extra-axial fluid collection is identified. Thoracic aorta: There is atherosclerotic calcification of the imaged thoracic aorta. Visualized portions of the thoracic aorta are normal in caliber. The aortic arch demonstrates standard 3-vessel anatomy. Right carotid arterial system: The right common carotid artery is widely patent, as are the right internal and external carotid arteries. Mild atherosclerotic plaque is seen in the right carotid bulb. Left carotid arterial system: The left common carotid artery is widely patent, as are the left internal and terminal carotid arteries. There is approximately 25% narrowing in the left proximal internal carotid artery secondary to soft plaque. Vertebral arteries: The vertebral arteries are widely patent. The left vertebral artery is dominant. No dissection is seen. Subclavian arteries: Widely patent bilaterally. Intracranial vasculature: A small left posterior indicating artery is identified. There is approximately 50% focal stenosis in the left carotid siphon, best seen on axial image #[address] angiogram of the brain. The carotid arteries are otherwise widely patent at the skull base. The anterior and middle cerebral arteries are widely patent. The vertebrobasilar system and posterior cerebral arteries are widely patent. The left vertebral artery is dominant. No aneurysm is seen. No focal vessel cutoff is appreciated. Jugular veins: Widely patent bilaterally. Dural sinuses: Clear. Lung apices: Emphysema is seen at the lung apices. Secretions are present within the right mainstem bronchus. No airspace consolidation is seen in the upper lobes. Soft tissues: The visualized pharyngeal soft tissues are normal in appearance noting angiographic phase technique. The oropharyngeal airway appears widely patent. The salivary and thyroid glands are normal in appearance. No cervical lymphadenopathy is seen. Calcified tonsilliths are incidentally noted. Skeletal structures: No destructive calvarial lesion is seen. The cervical spine appears intact noting mild spondylosis. Numerous dental caries are identified. A periapical lucency is seen around the right mandibular central incisor. Sinuses and mastoids: There is mild mucosal thickening within the maxillary antra and the ethmoid sinuses. The remaining paranasal sinuses are clear. The mastoid air cells are well pneumatized. IMPRESSION: 1. There is no hemorrhage, mass effect, or evidence of acute territorial ischemia by CT criteria. 2. 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 The CT angiogram of the brain is otherwise unremarkable. No aneurysm is seen. 3. Unremarkable CT angiogram of the neck. 4. Emphysema. 5. Numerous dental caries are identified. Follow-up with dentistry is recommended. 6. Additional findings as above. Assessment & Plan 1. Acute ischemic stroke s/p TPA administration 2. Emphysema 3. Tobacco abuser NVS - mentation appropriate - CT in am - MRI in am - neuro checks per protocol CVS - EKG in am - continue to monitor VS, suresh with hypertension so some concerns for dennis' s triad - echo RVS - no respiratory distress - O2 per nursing protocol - considering emphysema which is untreated, consider additionally adding any agent such as Spiriva prior to d/c as well as establishing with an available PCP in the area GI - advance diet as tolerated RENAL - recheck BMP in the am - I&O HEME - recheck in am - monitor for signs of bleeding ENDO - hba1c and FLP DVT prophylaxis post tpa admin FULL CODE Resident Physician Supervision Note: Dr. Springer was resident physician during care of patient. I separately evaluated patient and did history and exam. I discussed the case with the resident and generally agree with the findings and plan. Please see my progress note for further details, patient seen in the ED and asymptomatic with the exception of a very mild past pointing with the right upper extremity. Please reference my progress note for critical-care billing time Documented By: Miah Weiner DO
--- NOTE | 2016-02-25 19:11 | DIAGNOSTIC IMAGING REPORT ---
CT HEAD WITHOUT CONTRAST (CT) CLINICAL HISTORY: Recurrent stroke symptoms. COMPARISON STUDY: 02/25/2016 TECHNIQUE: Axial CT of the brain is performed from the vertex to the skull base. IV contrast was not administered for this examination. CT DOSE: 537.48 mGy.cm FINDINGS: No intra or extra-axial mass lesions are visualized. There is no CT evidence of acute cortical infarction. There is no evidence of midline shift. There is no acute hemorrhage. No calvarial fractures are visualized. There are minimal white matter hypodensities likely on a small vessel basis. There is no evidence of pathologic ventricular dilatation. There is no evidence of acute sinusitis There is evidence of contrast enhancement, secondary to the CT angiography performed earlier in the day. IMPRESSION: No acute intracranial findings Electronically signed by: Jaime Kim M.D. 02/25/2016 7:09 PM Dictated Date/Time: 02/25/2016 7:06 PM
[2016-02-25] MEDS ORDERED: HydrALAZINE HCL 20 MG/ML VIAL ONE (19:13)
[2016-02-25] MEDS ORDERED: LABETALOL HCL IV 5 MG/ML 20ML ONE (19:14)
[2016-02-25 19:26] LABS: ALKALINE PHOSPHATASE 65 U/L (45-117); ALT/SGPT 19 U/L (12-78); AST/SGOT 17 U/L (15-37)
[2016-02-25] MEDS ORDERED: NURSING VERBAL MED ORDER ONE (20:00)
[2016-02-25] MEDS ORDERED: NiCARDipine IV 25 MG in SODIUM CHLORIDE 0.9% 250ML 240 ML IV PRN (20:10)
[2016-02-25] MEDS ORDERED: MAGNESIUM SULFATE 1GM / D5W 2 GM in PREMIXED IN D5W 100 ML IV STA (20:10)
[2016-02-25] MEDS ORDERED: SODIUM CHLORIDE 0.9% 1000ML 1,000 ML IV ONE (20:15)
[2016-02-25] MEDS ORDERED: CLOPIDOGREL BISULFATE 300 MG TAB PO STA (20:35)
--- NOTE | 2016-02-25 20:35 | Progress Note ---
Progress Note I was alerted by the patient's nurse at 1854 return of the prior symptomatology : Right sided facial droop right upper extremity weakness and right lower extremity weakness. Patient's TPA administration was approximately at 1600, vital signs at that time included a heart rate of 75 blood pressure is 160/101. During my physical exam initially in the ED, the patient only exhibited mild past pointing in the right upper extremity strength of both lower upper extremities were equal and strong. 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 The patient underwent a stat noncontrast head CT, findings demonstrated no hemorrhagic conversion, I discussed this with the radiologist and reviewed the images myself. Upon return to the ICU the patient's blood pressure had increased to 191/101. Repeat examination there was increase in facial droop, dysarthria, increase in right weakness that he could not elevate the arm past his shoulder and increased weakness of the right lower extremity. Patient was given 5 mg of labetalol, there was an adequate response decrease in blood pressure to 174/82. Repeat examination at that time revealed continued worsening of the right- sided weakness. Initially paged the on-call her [facility] tele-stroke team at 1905. I discussed the case with Dr. 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 He agreed that the patient should be transferred to a tertiary care center who can provide endovascular interventions and is accepting the patient in transfer. He also recommended a fluid bolus, he was given a 1 L bolus of normal saline, 2 g IV magnesium sulfate. A Cardene drip was ordered with instructions to begin the drip for systolics greater than 185 mmHg or diastolic greater than 110, and goal to keep the systolic pressure greater than 160 millimeters of mercury. Family was updated of his condition, and agreeable to expedite his transport to [facility]. At this time of this dictation I find a [employer] service was completing the weather checks, I contacted [employer] from [employer] who was not flying. I have the [facility] critical care transport team on standby in event helicopter transport is not available. Of note patient is a Susie speaker, the patient's niece has been interpreting, Mallorie Matrinez, her cell phone is [phone]. I was recontacted by [place] [facility], we are deviating from the stroke protocol in the setting of recurrent symptoms by giving the patient 300 mg Plavix load as the patient's clinical condition has not improved with the aforementioned interventions and the prolonged transport time of ground transport of approximately 2 hours. I discussed with the family that this may increase hemorrhagic transformation risk and they're acceptable to this risk. Patient's blood pressure did increase again to 192/112, we accordingly have started the nicardipine infusion. I have personally spent 95 minutes of critical care time in the direct management of this patient. This is a life/limb threatening event. This includes time spent evaluating patient, direct bedside care, chart review, placing orders, interpretation of diagnostic studies, discussion with consultants, patient, and family members, as well as other required patient management activities. This time is exclusive of all separately billable procedures, and teaching time and separate from and in addition to any other critical care service time.
[2016-02-25] MEDS ORDERED: MAGNESIUM SULFATE 1GM / D5W 1 GM in PREMIXED IN D5W 100 ML IV SCH (21:00)
[2016-02-25] MEDS ORDERED: ATORVASTATIN 40 MG TAB PO SCH (21:00)
[2016-02-25] MEDS ORDERED: NCDT14 TD (21:18)
[2016-02-25] MEDS ORDERED: LPT40 PO (21:18)
--- NOTE | 2016-02-25 21:23 | Discharge Instructions ---
Discharge Instructions Admission Reason for Admission: Stroke Discharge Discharge Diagnosis / Problem: Acute CVA Discharge Goals Goal(s): Decrease discomfort, Improve function Activity Recommendations Activity Limitations: per Instructions/Follow-up section . Instructions / Follow-Up Instructions / Follow-Up Risk Factors for Stroke: You can reduce your chances of stroke by working with your medical provider to adopt a healthy lifestyle. Some specific ways to lower your chance of stroke are: * If you are a smoker, now is the time to stop smoking cigarettes * If you are diabetic, improve the control of your blood sugars * Avoid excessive amounts of alcohol * Control high blood pressure * Lose weight if you are overweight * Be sure to lead an active lifestyle * Eat a healthy diet low in salt, cholesterol and fat You should know about other risk factors for stroke that you are unable to control. These include: * Age 55 years or older * Male gender * Certain racial groups: , or / * Family History of Stroke, Mini stroke or Heart Attack * Sickle Cell Disease Follow Up: It is important for you to keep your follow up appointments with your medical provider. Current Hospital Diet Patient's current hospital diet: Discharge Diet Recommended Diet: AHA Diet (Heart Healthy) Pending Studies Studies pending at discharge: yes List of pending studies: MRI/MRA head, ECHO, Lipid panel, A1C Laboratory Results Hemoglobin A1c Test 02/25/16 13:50 Range/Units Medical Emergencies . Who to Call and When: Medical Emergencies: Call 911 immediately if you experience any of the following warning signs and symptoms of Stroke: * Sudden numbness or weakness of the face, arm or leg, especially on one side of the body * Sudden confusion, trouble speaking or understanding * Sudden trouble seeing in one or both eyes * Sudden trouble walking, dizziness, loss of balance or coordination * Sudden severe headache with no cause Do not delay calling 911 if you experience any warning signs or symptoms of a stroke. Delay in seeking medical attention may affect what treatments can be given to you. . Non-Emergent Contact Non-Emergency issues call your: Primary Care Provider, Neurologist Call Non-Emergent contact if: you have a fever, you have any medication questions . . "Provider Documentation" section prepared by Steve Westfall. Stroke Core Measures Reason no t-PA for Stroke: Treatment provided - N/A Reason no antithrom by day 2: Treatment provided - N/A Reason no antithrom at D/C: Treatment provided - N/A Reason no statin at D/C: Treatment provided - N/A Reason no anticoag w/a fib: Treatment provided - N/A VTE Core Measure Inpt VTE Proph given/why not?: Contraindicated
--- NOTE | 2016-02-25 21:57 | Discharge Summary ---
Discharge Summary Admission Date: Feb 25, 2016 at 16:33 Discharge Date: Feb 25, 2016 Discharge Disposition: Acute care facility Principal Diagnosis: Acute CVA S/P tPA Secondary Diagnoses/Problems: Tobacco use disorder Procedures: CT Head: 1. There is no hemorrhage, mass effect, or evidence of acute territorial ischemia by CT criteria. 2. 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 The CT angiogram of the brain is otherwise unremarkable. No aneurysm is seen. 3. Unremarkable CT angiogram of the neck. 4. Emphysema. 5. Numerous dental caries are identified. Follow-up with dentistry is recommended. CTA: 1. There is no hemorrhage, mass effect, or evidence of acute territorial ischemia by CT criteria. 2. 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 The CT angiogram of the brain is otherwise unremarkable. No aneurysm is seen. 3. Unremarkable CT angiogram of the neck. 4. Emphysema. 5. Numerous dental caries are identified. Follow-up with dentistry is recommended. 6. Additional findings as above. CXR: No acute process. Repeat CT Head: No acute intracranial findings Consultations: Neurology, General Manager Road [employer] Medication Reconciliation New Medications: Atorvastatin (Atorvastatin Calcium) 40 Mg Tab 40 MG PO QPM, #30 TAB Nicotine (Nicotine) 1 Patch Tdsy 1 PATCH TD QAM for 30 Days, #30 Admission Information HPI (per Admitting provider): Patient seen and examined. 65 year old male with PMHx of tobacco abuse ho does not follow with a doctor on a regular basis and speaks minimal Amharic presents to the ED complaining of right sided weakness prior to arrival. History taken primarily by family as they declined language line. Family reports that the patient had several falls this morning. They went over to see him and around 12: 30 they noticed right sided upper and lower extremity weakness, slurred speech and right sided facial droop. These symptoms lasted for about 30minutes and then resolved totally. They brought the patient to the ED via private vehicle and on the way these symptoms returned and lasted for a few minutes and then went away. On arrival at the ED the patient had no focal deficits. Shortly after arrival, patient developed right sided facial droop, numbness/tingling and weakness of the right upper and lower extremity and slurred speech. A stroke alert was called. CT head was negative for acute ischemic changes but [facility] neurology recommended TPA. TPA was given and finished at 1603. Patient currently feels back at baseline. Family denies that these symptoms have ever happened before. The patient denies fevers, chills, head trauma, URI symptoms, chest pain, SOB, palpitation, nausea, vomiting, diarrhea, dysuria, calf pain and edema. He reports a family history of a stroke in his father. He denies aspirin use. In the ED BP was elevated in the 170s, otherwise VS were stable, CBC, PRP were unremarkable. Patient will be admitted to the ICU for close observation following TPA administration. Physical Exam (per Admitting): General Appearance: + pertinent finding (Pleasant WD/WN 65 year old male lying in bed in NAD with family at bedside ) Head: normocephalic, atraumatic Eyes: PERRL, sclerae normal ENT: hearing grossly normal, + pertinent finding (poor dentition ) Neck: supple, no JVD, trachea midline Respiratory/Chest: chest non-tender, normal breath sounds, no respiratory distress, no accessory muscle use, + crackles (trace, scattered ) Cardiovascular: regular rate, rhythm, no edema, no gallop, no JVD, no murmur , normal peripheral pulses Abdomen/GI: normal bowel sounds, non tender, soft Back: normal inspection, no muscle spasm Extremities/Musculoskelatal: no calf tenderness, normal capillary refill, no pedal edema Neurologic/Psych: alert, oriented x 3, + pertinent finding (felt hat inspector and packer intact, no facial droop, tongue midline, strength +5/5 in all extremities equal bilaterally , sensation intact) Skin: normal color, warm/dry, no rash Lymphatic: no adenopathy Hospital Course Patient is a 65 yr old male with no significant PMH other than Tobacco use disorder presents with history of sudden onset of right sided weakness, facial droop and slurred speech this morning. Family reports he fell at least twice as a result of his weakness but denies any head trauma, LOC, bowel/bladder incontinence, vertigo, change in vision, dizziness or similar symptoms in the past. Symptoms were self limited which lasted for about 30 minutes. While in ED patient had recurrence of his symptoms and CT head showed no acute pathology and TPA was administered while in ED and was transferred to ICU for further management. Patient's TPA administration was approximately at 1603. Neurologist and General Manager Road Production were consulted. Patient' s symptoms resolved after tPA administration but later while in ICU patient again started to develop right sided facial droop right upper extremity weakness and right lower extremity weakness. Patient had repeat CT head which showed no hemorrhagic conversion. His BP while in ED was increased to 191/101 which responded to 5mg labetalol to BP of 174/82. 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 Patient was accepted by at [facility] and was transferred for further management. Patient was also given Plavix 300mg on recommendations from [facility]. Total time spent on discharge = This includes examination of the patient, discharge planning, medication reconciliation, and communication with other providers. Discharge Instructions Discharge Instructions Admission Reason for Admission: Stroke Discharge Discharge Diagnosis / Problem: Acute CVA Discharge Goals Goal(s): Decrease discomfort, Improve function Activity Recommendations Activity Limitations: per Instructions/Follow-up section . Instructions / Follow-Up Instructions / Follow-Up Risk Factors for Stroke: You can reduce your chances of stroke by working with your medical provider to adopt a healthy lifestyle. Some specific ways to lower your chance of stroke are: * If you are a smoker, now is the time to stop smoking cigarettes * If you are diabetic, improve the control of your blood sugars * Avoid excessive amounts of alcohol * Control high blood pressure * Lose weight if you are overweight * Be sure to lead an active lifestyle * Eat a healthy diet low in salt, cholesterol and fat You should know about other risk factors for stroke that you are unable to control. These include: * Age 55 years or older * Male gender * Certain racial groups: , or / * Family History of Stroke, Mini stroke or Heart Attack * Sickle Cell Disease Follow Up: It is important for you to keep your follow up appointments with your medical provider. Current Hospital Diet Patient's current hospital diet: Discharge Diet Recommended Diet: AHA Diet (Heart Healthy) Pending Studies Studies pending at discharge: yes List of pending studies: MRI/MRA head, ECHO, Lipid panel, A1C Laboratory Results Hemoglobin A1c Test 02/25/16 13:50 Range/Units Medical Emergencies . Who to Call and When: Medical Emergencies: Call 911 immediately if you experience any of the following warning signs and symptoms of Stroke: * Sudden numbness or weakness of the face, arm or leg, especially on one side of the body * Sudden confusion, trouble speaking or understanding * Sudden trouble seeing in one or both eyes * Sudden trouble walking, dizziness, loss of balance or coordination * Sudden severe headache with no cause Do not delay calling 911 if you experience any warning signs or symptoms of a stroke. Delay in seeking medical attention may affect what treatments can be given to you. . Non-Emergent Contact Non-Emergency issues call your: Primary Care Provider, Neurologist Call Non-Emergent contact if: you have a fever, you have any medication questions . . "Provider Documentation" section prepared by Steve Westfall. Stroke Core Measures Reason no t-PA for Stroke: Treatment provided - N/A Reason no antithrom by day 2: Treatment provided - N/A Reason no antithrom at D/C: Treatment provided - N/A Reason no statin at D/C: Treatment provided - N/A Reason no anticoag w/a fib: Treatment provided - N/A VTE Core Measure Inpt VTE Proph given/why not?: Contraindicated
[2016-02-25] MEDS ORDERED: INFLUENZA ADMINISTRATION CHARGE ONE (22:00)
[2016-02-25] MEDS ORDERED: PNEUMOCOCCAL ADMINISTRATION CHARGE ONE (22:00)
[2016-02-25] MEDS ORDERED: INFLUENZA VIRUS QUAD VACCINE 0.5 ML SYR IM. ONE (22:00)
[2016-02-25] MEDS ORDERED: PNEUMOCOCCAL POLYSACCHARIDES 25 MCG/0.5 ML VIAL/SYR IM. ONE (22:00)
[2016-02-26 06:29] LABS: ESTIMATED AVERAGE GLUCOSE 126 mg/dl; HA1C FLAG Normal (Normal)
[2016-02-26] MEDS ORDERED: NICOTINE 14 MG/24 HR TDSY TD SCH (09:00)
[2016-02-26] MEDS ORDERED: RECOMBINANT IV ONE ×2 (14:59→15:00)
[2016-02-26] MEDS ORDERED: ALTEPLASE IV ONE ×2 (14:59→15:00)
== END 2016-02-25 22:07 | disposition short-term general hospital (02) | DRG 62 ==
LOC: ENRESERVDT → ENRESERVTM → C.EDB 13:39 → C.MSICU 16:33
PROVIDERS: ADMIT Internal Medicine; ATTEND Family Medicine
DX: I63.9 Cerebral infarction, unspecified (principal); G81.91 Hemiplegia, unspecified affecting right dominant side; I65.22 Occlusion and stenosis of left carotid artery; J43.9 Emphysema, unspecified; K02.9 Dental caries, unspecified; R29.810 Facial weakness; I10 Essential (primary) hypertension; F17.200 Nicotine dependence, unspecified, uncomplicated